=== PATIENT | female | born 1990 | race American Indian/Alaskan Native ===

== ENCOUNTER 2017-12-21 23:55 | Observation (INO) | payer OTHER ==
--- NOTE | 2017-12-22 00:59 | Emergency Department Report ---
HPI - General Chief Complaint: OB/Uterine Contractions Time Seen by Provider: 12/22/17 00:46 - HPI HPI: Room 1 The patient is a 27-year-old female presenting with a chief complaint of miscarriage/stillborn. The patient states she did not know she was . The patient states her last cycle occurred in July 2017. The patient states this evening she developed abdominal pain and low back pain and went to the bathroom push and a fetus pass. The fetus is still present connected my umbilical cord which still attached to the patient. The patient gets her back pain score of 6/10. Location: [See above] Duration: [See above] Quality: Pain Severity: Moderate Modifying factors: [see above] Context: [see above] Mode of transportation: [not driving] ED Past Medical Hx - Past Medical History Previous Medical History?: No Additional medical history: irregular menstrual cycle - Surgical History Past Surgical History?: No - Family History Family history: no significant - Social History Smoking Status: Never Smoker Substance Use Type: None ED Review of Systems ROS: Stated complaint: POST DELIVERY COMPLICATIONS Other details as noted in HPI Gastrointestinal: abdominal pain Genitourinary: abnormal menses Musculoskeletal: back pain Physical Exam - Physical Exam Vital Signs: Vital Signs 12/22/17 00:05 Temperature 97.9 F Pulse Rate 68 Respiratory 16 Rate Blood Pressure 101/50 O2 Sat by Pulse 100 Oximetry Physical Exam: GENERAL: The patient is well-developed well-nourished female lying on stretcher not appearing to be in acute distress. [] HEENT: Normocephalic. Atraumatic. Extraocular motions are intact. Patient has moist mucous membranes. NECK: Supple. Trachea midline CHEST/LUNGS: Clear to auscultation. There is no respiratory distress noted. HEART/CARDIOVASCULAR: Regular. There is no tachycardia. There is no gallop rub or murmur. ABDOMEN: Abdomen is soft, with mild discomfort to palpation in the suprapubic region. Patient has normal bowel sounds. There is no abdominal distention. SKIN: There is no rash. There is no edema. There is no diaphoresis. NEURO: The patient is awake, alert, and oriented. The patient is cooperative. The patient has normal speech MUSCULOSKELETAL: There is no evidence of acute injury. GENITOURINARY: Fetus with intact umbilical cord still attached to the patient present on the stretcher. No active vaginal bleeding seen ED Course Vital Signs 12/22/17 00:05 Temperature 97.9 F Pulse Rate 68 Respiratory 16 Rate Blood Pressure 101/50 O2 Sat by Pulse 100 Oximetry - Consultations Consultation #1: 12/22/17 00:54 RESIDENTIAL FIELD MANAGER paged 12/22/17 01:[address] Latanya Elam- request Cytotec be placed at the bedside. Requests W CC labs be sent. States will be in the ED and approximately 30 minutes ED Medical Decision Making - Lab Data Result diagrams: 12/22/17 00:46 Laboratory Tests 12/22/17 12/22/17 12/22/17 00:42 00:46 00:46 WBC 6.9 RBC 3.80 Hgb 9.7 L Hct 29.6 L MCV 78 L MCH 26 L MCHC 33 RDW 17.9 H Plt Count 184 Lymph % (Auto) 22.5 [place] % (Auto) 10.9 H Eos % (Auto) 1.3 Baso % (Auto) 0.1 Lymph # 1.5 [place] # 0.7 Eos # 0.1 Baso # 0.0 Seg Neutrophils % 65.2 Seg Neutrophils # 4.5 HCG, Quant 21364 H Blood Type B POSITIVE Antibody Screen Negative - Differential Diagnosis incomplete Critical care attestation.: If time is entered above; I have spent that time in minutes in the direct care of this critically ill patient, excluding procedure time. ED Disposition Clinical Impression: Incomplete Disposition: -09 OP ADMIT IP TO THIS HOSP Is pt being admited?: Yes Does the pt Need Aspirin: No Condition: Fair Referrals: PRIMARY CARE, [Primary Care Provider] - 3-5 Days Time of Disposition: 02:41 (admitted by Dr. Latanya Elam)
[2017-12-22 01:07] LABS: Basophils % (Auto) 0.1 % (0.0-1.8); Eosinophils # (Auto) 0.1 K/mm3 (0.0-0.4); Eosinophils % (Auto) 1.3 % (0.0-4.3); Hematocrit 29.6 % (30.3-42.9); Hemoglobin 9.7 gm/dl (10.1-14.3); Lymphocytes # (Auto) 1.5 K/mm3 (1.2-5.4); Lymphocytes % (Auto) 22.5 % (13.4-35.0); Mean Corpuscular HGB Conc 33 % (30-34); Mean Corpuscular Volume 78 fl (79-97); Monocytes # (Auto) 0.7 K/mm3 (0.0-0.8); Monocytes % (Auto) 10.9 % (0.0-7.3); Platelet Count 184 K/mm3 (140-440); Red Cell Distribution Width 17.9 % (13.2-15.2)
[2017-12-22 01:11] LABS: Mean Corpuscular Hemoglobin 26 pg (28-32)
[2017-12-22] MEDS ORDERED: CYTOTEC PR ONE (01:36)
[2017-12-22 02:42] LABS: Hepatitis C Virus Antibody Non-Reactive (NonReactive)
--- NOTE | 2017-12-22 03:04 | History and Physical Report ---
History of Present Illness Date of examination: 12/22/17 Date of admission: 12/22/17 Chief complaint: back pain and abdominal pain History of present illness: This is a 27 yo with LMP sometime in July comes into ER for pain starting at 2p and increased in intensity at 8p in which her brought her to ER. It was noted by Dr. Dickinson that baby in bed with cord still attached. Minimal bleeding and decreasing in cramping. Patient had no indication of and has not been before. She reports no medical problems. No surgeries and no allergies to medication. Past History Past Medical History: no pertinent history Past Surgical History: no surgical history Family/Genetic History: none Social history: . denies: smoking, alcohol abuse, prescription drug abuse - Obstetrical History Expected Date of Delivery: 05/04/18 Actual Gestation: 21 Week(s) 0 Day(s) : 1 Para: 0 Hx # Term Pregnancies: 0 Number of Pregnancies: 0 Spontaneous Abortions: 0 Induced : 0 Number of Living Children: 0 Review of Systems All systems: negative Genitourinary: normal appearance, no vaginal bleeding, no leakage of fluid - Vital Signs Vital signs: Vital Signs Temp Pulse Resp BP Pulse Ox 97.9 F 68 16 101/50 100 12/22/17 00:05 12/22/17 00:05 12/22/17 00:05 12/22/17 00:05 12/22/17 00:05 Temp Pulse Resp BP Pulse Ox 97.9 F 68 16 101/50 100 12/22/17 00:05 12/22/17 00:05 12/22/17 02:56 12/22/17 00:05 12/22/17 02:56 - Physical Exam Breasts: Positive: normal Cardiovascular: Regular rate, Normal S1 Lungs: Positive: Clear to auscultation, Normal air movement Abdomen: Positive: normal appearance, soft, normal bowel sounds. Negative: distention, tenderness, guarding Genitourinary (Female): Positive: normal external genitalia Vulva: both: normal Vagina: Positive: normal moisture Uterus: Positive: normal size Anus/Rectum: Positive: normal perianal skin Extremities: Positive: normal Deep Tendon Reflex Grade: Normal +2 Results Result Diagrams: 12/22/17 00:46 Abnormal lab results 05/06/18 05/06/18 Range/Units 00:46 00:46 Hgb 9.7 L (10.1-14.3) gm/dl Hct 29.6 L (30.3-42.9) % MCV 78 L (79-97) fl MCH 26 L (28-32) pg RDW 17.9 H (13.2-15.2) % [place] % (Auto) 10.9 H (0.0-7.3) % HCG, Quant 45709 H (0-4) mIU/mL All other labs normal. Assessment and Plan A/P IUP 21 weeks ( demise) s/p delivery with cord attached will start cytotec 200 ug every 4hrs until delivery will consider D and c if placenta is not delivered all labs sent ( ) type and screen
[2017-12-22] MEDS ORDERED: BRETHINE SUB-Q PRN (03:12)
[2017-12-22] MEDS ORDERED: ePHEDrine SULFATE IV PRN (03:12)
[2017-12-22] MEDS ORDERED: STADOL IV PRN (03:12)
[2017-12-22] MEDS ORDERED: XYLOCAINE 2% INFILTRATI ONE (03:12)
[2017-12-22] MEDS ORDERED: ZOFRAN IV PRN (03:12)
[2017-12-22] MEDS ORDERED: PHENERGAN PO PRN (03:12)
[2017-12-22] MEDS ORDERED: BRETHINE IVP PRN (03:12)
[2017-12-22] MEDS ORDERED: MINERAL OIL PO PRN (03:12)
[2017-12-22] MEDS ORDERED: SUBLIMAZE IV PRN (03:12)
[2017-12-22 03:15] LABS: Rubella IgG Antibody Immune (Immune)
[2017-12-22] MEDS ORDERED: PITOCin/NS 20 UNIT/1000ML DRIP 20 UNITS/1,000 ML BAG IV SCH (04:00)
[2017-12-22] MEDS ORDERED: PITOCin/NS 30 UNIT/500ML 30 UNITS/500 ML BAG IV SCH (04:00)
[2017-12-22] MEDS: LACTATED RINGERS 1,000 ML IV SCH ×3 (05:26→22:15)
--- NOTE | 2017-12-22 05:36 | Event Note ---
Date: 12/22/17 Patient transferred to L and D and was examined and noted to have fetus delivered with cord attached. clamp applied and cut and pelvic exm revealed a cervix 1cm no bleeding. Cytotec applied in posterior fornix. Will continue to watch closely for delivery of retained placenta.
[2017-12-22] MEDS ORDERED: CYTOTEC VG SCH (09:00)
[2017-12-22] MEDS: CYTOTEC VG SCH ×2 (13:45→19:06)
--- NOTE | 2017-12-22 13:48 | Event Note ---
Date: 12/22/17 Patient has some contractions. SVE 1-2 cm cord still present. I placed 400 ug in posterior fornix. will continue present mgt. patient stable
--- NOTE | 2017-12-22 19:14 | Ultrasound Report ---
FINAL REPORT PROCEDURE: US OB LIMITED TECHNIQUE: Real-time limited sonographic examination was performed for evaluation of size, position, heartbeat, fluid volume for each fetus with image documentation (1 or more fetuses). CPT 48506 HISTORY: Early delivery. Evaluate retained products of conception COMPARISON: No prior studies are available for comparison. FINDINGS: There is no evidence of a living intrauterine gestation. There is a 3.4 x 11.0 centimeter mildly echogenic structure seen in the endometrial canal consistent with retained products of conception. A small amount of fluid is also visualized. pole and heartbeat are not visualized. Uterus is otherwise unremarkable. Neither ovary was visualized. IMPRESSION: Retained products of conception as described. pole and heartbeat are not visualized.
[2017-12-22] MEDS ORDERED: NACL 0.9% 500 ML 500 ML IV SCH (20:21)
[2017-12-23] MEDS ORDERED: POLYCILLIN/NS 2 GM/100 ML 2 GM/100 ML BAG IV ONE (01:26)
[2017-12-23] MEDS: POLYCILLIN/NS 2 GM/100 ML 2 GM/100 ML BAG IV SCH ×2 (01:41→07:07)
[2017-12-23] MEDS: CYTOTEC VG SCH (02:22)
--- NOTE | 2017-12-23 02:35 | Event Note ---
Date: 12/23/17 Patient had some bleeding and clots earlier. No active bleeding now. sve2/50/-3 cytotec 400 ug po given ( last dose) discussed r/b/a of D and C which include bleeding infection, damage to pelvic and non pelvic organs , risk of hysterectomy and . consents signed. plan for scheduled procedure in am.
--- NOTE | 2017-12-23 07:39 | Progress Note ---
Assessment and Plan A/P IUP 21 weeks ( demise) s/p delivery with cord attached s/p retained placenta delivery ( s/p cytotec 5 doses) will check hemoglobin vss discharge home today Subjective - Subjective Date of service: 12/23/17 Principal diagnosis: s/p and delivery of retained placenta Interval history: This is a 27 yo with LMP sometime in July comes into ER for pain starting at 2p and increased in intensity at 8p in which her brought her to ER. It was noted by Dr. Dickinson that baby in bed with cord still attached. Minimal bleeding and decreasing in cramping. Patient had no indication of and has not been before. She reports no medical problems. No surgeries and no allergies to medication. Patient reports: appetite normal, voiding normally, pain well controlled, flatus , ambulating normally [place]: Objective - Vital Signs Latest vital signs: Vital Signs Temp Pulse Resp BP BP Pulse Ox 12/23/17 07:37 59 L 99 12/23/17 07:33 55 L 101/59 12/23/17 07:32 58 L 97 12/23/17 07:06 71 98 12/23/17 07:01 70 98 12/23/17 06:56 66 99 12/23/17 06:51 70 98 12/23/17 06:46 71 100 12/23/17 06:41 72 97 12/23/17 06:36 68 100 12/23/17 06:31 69 98 12/23/17 06:28 81 93 12/23/17 06:26 63 99 12/23/17 06:02 71 96 12/23/17 05:57 71 98 12/23/17 05:52 71 98 12/23/17 05:47 70 98 12/23/17 05:42 68 99 12/23/17 05:37 64 98 12/23/17 05:32 67 98 12/23/17 05:27 71 98 12/23/17 05:22 68 99 12/23/17 05:17 68 98 12/23/17 05:12 70 98 12/23/17 05:08 71 107/52 12/23/17 05:07 67 98 12/23/17 05:05 98.6 F 69 18 107/52 12/23/17 00:59 69 100/59 05/07/18 00:58 69 86/50 05/07/18 00:55 68 86/48 05/06/18 23:55 67 99/57 05/06/18 22:55 79 95/50 05/06/18 22:21 80 98 05/06/18 22:16 73 98 05/06/18 22:11 73 99 05/06/18 22:10 94 H 91 [id number] 22:06 79 99 05/06/18 22:01 73 93 05/0618 21:56 69 99 05/06/18 21:55 72 106/57 05/06/18 21:51 76 100 05/06/18 21:46 75 99 05/06/18 21:41 76 100 05/0618 21:36 81 99 05/06/18 21:31 80 98 05/06/18 21:26 81 98 05/06/18 21:21 77 98 05/06/18 21:16 81 98 05/0618 21:11 77 99 05/0618 21:06 75 98 05/0618 21:01 74 99 05/06/18 20:56 75 99 05/06/18 20:55 73 106/53 78 L 05/06/18 20:51 78 99 05/06/18 20:46 81 100 05/06/18 20:41 74 99 05/06/18 20:36 69 99 05/06/18 20:31 78 99 05/06/18 20:26 68 99 05/06/18 20:21 81 98 05/06/18 20:16 69 100 05/0618 20:11 72 100 05/0618 20:06 68 100 05/06/18 20:05 86 70 L 05/0618 20:01 80 99 05/06/18 19:56 59 L 97 05/06/18 19:54 99.1 F 05/0618 19:51 81 99 05/06/18 19:46 75 98 05/06/18 19:41 89 99 05/06/18 19:36 90 99 05/06/18 19:31 83 99 05/06/18 19:26 86 99 05/06/18 19:21 76 100 05/0618 19:19 76 107/50 05/06/18 19:16 77 99 05/06/18 19:11 60 100 0518 19:06 60 100 0518 19:01 60 100 0518 18:56 61 99 0518 18:55 60 87/48 05 18:51 60 99 18 18:46 57 L 99 12/22/17 18:41 54 L 100 12/22/17 18:36 54 L 100 12/22/17 18:34 35 L 84 12/22/17 18:31 62 99 18 18:26 72 97 12/22/17 18:21 58 L 100 12/22/17 18:16 61 99 12/22/17 18:11 57 L 99 12/22/17 18:06 58 L 100 12/22/17 18:01 58 L 99 12/22/17 17:56 57 L 100 12/22/17 17:55 64 104/70 12/22/17 17:51 64 100 12/22/17 17:46 57 L 100 12/22/17 17:41 53 L 100 12/22/17 17:36 57 L 100 12/22/17 17:31 53 L 100 12/22/17 17:26 55 L 100 12/22/17 17:21 53 L 100 12/22/17 17:16 57 L 100 12/22/17 17:11 59 L 100 12/22/17 17:06 59 L 100 12/22/17 17:01 65 100 12/22/17 16:56 72 L 12/22/17 16:55 62 94 12/22/17 16:51 61 100 18 16:46 60 100 18 16:41 61 100 18 16:36 63 100 18 16:31 59 L 100 18 16:26 54 L 100 18 16:24 56 L 106/50 0518 16:23 67 131/49 0518 16:21 68 100 0518 16:16 97.9 F 66 16 106/50 100 0518 15:55 52 L 102/57 05 15:54 55 L 100 05 15:49 55 L 100 12/22/17 15:44 61 99 0518 15:40 81 94 0518 15:39 61 99 0518 15:34 63 99 0518 15:29 60 100 0518 15:24 59 L 99 0518 15:19 59 L 99 0518 15:14 73 96 05 15:09 63 99 05 15:04 56 L 100 05 14:59 58 L 99 12/22/17 14:54 59 L 99 12/22/17 14:49 57 L 99 12/22/17 14:44 59 L 99 12/22/17 14:39 55 L 99 12/22/17 14:34 56 L 97 12/22/17 14:29 54 L 99 12/22/17 14:24 55 L 100 12/22/17 14:19 58 L 99 12/22/17 14:14 53 L 99 12/22/17 14:09 59 L 99 12/22/17 14:04 63 99 12/22/17 14:03 54 L 89 12/22/17 13:59 57 L 100 12/22/17 13:55 63 105/55 0518 13:54 61 99 0518 13:49 64 81 L 0518 13:47 61 72 L 0518 13:44 62 100 0518 13:39 66 67 L 0518 13:38 70 95 0518 13:33 62 100 18 13:32 64 92 0518 13:28 66 98 0518 13:24 59 L 92 0518 13:23 67 99 05/18 13:18 68 100 0518 13:13 62 100 0518 13:08 60 100 0518 13:03 62 99 0518 12:58 62 97 050618 12:55 63 106/59 05/0618 12:53 61 99 0518 12:48 65 99 0518 12:43 64 105/70 100 0518 12:37 98 F 63 16 105/70 99 0518 08:55 61 86/49 0518 07:55 97.9 F 68 16 101/57 101/57 Intake and Output 12/22/17 12/22/17 12/23/17 15:59 23:59 07:59 Intake Total 1000 1000 100 Balance 1000 1000 100 Intake: IV 1000 1000 100 Lactated Ringers 1,000 ml 1000 1000 @ 125 mls/hr IV DIRECT DUNIA Rx#:[id number] POLYCILLIN/NS 2 GM/100 ML 100 2 gm In 100 ml @ 100 mls /hr IV Q4HR DUNIA Rx#: [id number] - Exam Breasts: Present: normal Cardiovascular: Present: Regular rate, Normal S1 Lungs: Present: Clear to auscultation, Normal air movement Abdomen: Present: normal appearance, soft, normal bowel sounds. Absent: distention, tenderness, guarding Vulva: both: normal Uterus: Present: normal, firm. Absent: bogginess, tenderness Extremities: Present: normal Deep Tendon Reflex Grade: Normal +2 - Labs Labs: Abnormal lab results 12/22/17 Range/Units 00:42 Crossmatch See Detail
[2017-12-23] MEDS ORDERED: LACTATED RINGERS 1,000 ML IV ONE (09:20)
--- NOTE | 2017-12-23 09:40 | Ultrasound Report ---
ULTRASOUND PELVIC COMPLETE HISTORY: Spontaneous vaginal delivery at 21 weeks, check for retained products of conception. TECHNIQUE: Transabdominal and transvaginal ultrasound with color doppler interrogation. FINDINGS: The uterus measures 12 x 7 x 9 cm. No uterine fibroid disease is identified. The endometrial stripe measures up to 26 mm in thickness in the lower uterine segment. No endometrial fluid collection. The ovaries are normal size, contour and echotexture. No adnexal cyst or mass. IMPRESSION: Thickened endometrium as described concerning for retained products of conception.
[2017-12-23 10:00] LABS: Basophils % (Auto) 0.2 % (0.0-1.8); Eosinophils # (Auto) 0.1 K/mm3 (0.0-0.4); Eosinophils % (Auto) 0.8 % (0.0-4.3); Hemoglobin 9.2 gm/dl (10.1-14.3); Lymphocytes # (Auto) 0.9 K/mm3 (1.2-5.4); Lymphocytes % (Auto) 13.8 % (13.4-35.0); Mean Corpuscular HGB Conc 34 % (30-34); Mean Corpuscular Hemoglobin 26 pg (28-32); Mean Corpuscular Volume 77 fl (79-97); Monocytes # (Auto) 0.5 K/mm3 (0.0-0.8); Monocytes % (Auto) 7.3 % (0.0-7.3); Platelet Count 160 K/mm3 (140-440); Red Blood Count 3.49 M/mm3 (3.65-5.03); Red Cell Distribution Width 17.8 % (13.2-15.2)
[2017-12-23 12:03] VITALS: BP 104/49
== END 2017-12-23 13:15 | disposition home or self-care (01) ==
LOC: ED 23:55 → OB 12-22 03:53 → INTOOBSV 12-22 03:53 → LD 12-22 04:11
PROVIDERS: ADMIT Obstetrics & Gynecology; ATTEND Obstetrics & Gynecology
DX: O26.892 Other specified pregnancy related conditions, second trimester (principal); R10.9 Unspecified abdominal pain; O99.89 Other specified diseases and conditions complicating pregnancy, childbirth and the puerperium; M54.9 Dorsalgia, unspecified; Z3A.21 21 weeks gestation of pregnancy
CPT/HCPCS: 36415; 76815; 76856; 84702; 85025; 85660; 86592; 86706; 86762; 86803; 86850; 86900; 86901; 87806; 88305; 96361; 96365; 96366; 96367; 96375; 99285; G0378; J0290; J0595; J2405; J2590; J3105; J7120; 86920

== ENCOUNTER 2020-10-10 10:00 | Emergency (ER) | payer BC ==
[2020-10-10] MEDS ORDERED: ACETAMINOPHEN 500 MG TAB PO ONE (10:40)
--- NOTE | 2020-10-10 10:49 | Event Note ---
ED Screening Note Date of service: 10/10/20 Time: 10:48 ED Screening Note: 30-year-old female with no significant past medical history presents to the ER today complaint of syncope and head injury. Patient states that this morning while she was standing next to the lead carpenter she started to "dizzy, and then she passed out. She states that she is not sure exactly how long she passed out but she know it was brief. She states that she did hit her head on the door. She denies any associated nausea, vomiting, chest pain, shortness of breath abdominal pain or any other associated symptoms. This initial assessment/diagnostic orders/clinical plan/treatment(s) is/are subject to change based on patients health status, clinical progression and re- assessment by fellow clinical providers in the ED. Further treatment and workup at subsequent clinical providers discretion. Patient/guardian urged not to elope from the ED as their condition may be serious if not clinically assessed and managed. Initial orders include: Head CT, CBC, CMP, EKG, hCG and urinalysis
[2020-10-10 11:44] LABS: Basophils % (Auto) 0.6 % (0.0-1.8); Eosinophils # (Auto) 0.1 K/mm3 (0.0-0.4); Eosinophils % (Auto) 2.7 % (0.0-4.3); Hematocrit 33.4 % (30.3-42.9); Hemoglobin 10.9 gm/dl (10.1-14.3); Lymphocytes # (Auto) 1.5 K/mm3 (1.2-5.4); Lymphocytes % (Auto) 47.4 % (13.4-35.0); Mean Corpuscular HGB Conc 33 % (30-34); Mean Corpuscular Volume 75 fl (79-97); Monocytes # (Auto) 0.4 K/mm3 (0.0-0.8); Monocytes % (Auto) 13.3 % (0.0-7.3); Platelet Count 169 K/mm3 (140-440); Red Blood Count 4.47 M/mm3 (3.65-5.03)
--- NOTE | 2020-10-10 11:55 | Cat Scan Report ---
NONENHANCED CT SCAN OF THE HEAD: INDICATION / CLINICAL INFORMATION: 30 years Female; Head injury/syncope. TECHNIQUE: Routine CT head without contrast. All CT scans at this location are performed using CT dos e reduction for [place] by means of automated exposure control. COMPARISON: None. FINDINGS: BRAIN / INTRACRANIAL CONTENTS: No intracranial sequela from the trauma; no scalp hematoma; no air-flu id level in the visualized portions of the paranasal sinuses No acute hemorrhage, mass effect, midline shift, hydrocephalus, or acute, large territorial infarct. No chronic infarct or focal atrophy. Normal brain volume and ventricular/sulcal size for age. No sig nificant white matter abnormality. CRANIOCERVICAL JUNCTION: No significant abnormality. ORBITS: No significant abnormality of visualized orbits. SINUSES / MASTOIDS: No significant abnormality of the visualized paranasal sinuses or mastoid air morgan ls. ADDITIONAL FINDINGS: None. IMPRESSION: No intracranial sequela from the trauma; No focal parenchymal lesion Signer Name: Jossy Recinos MD Signed: 10/10/2020 11:50 AM Workstation Name: [employer]
--- NOTE | 2020-10-10 12:04 | Emergency Department Report ---
ED General Adult HPI - General Chief complaint: Syncope Stated complaint: FALL/HEAD INJURY Time Seen by Provider: 10/10/20 10:25 Source: patient Mode of arrival: Ambulatory Limitations: No Limitations - History of Present Illness Initial comments: The patient presents to the emergency department with a chief complaint of passing out. Patient states she woke up around 8:30 AM this morning felt more fatigued than she normally does. Patient states she went to her line to area to get a uniform for work and was feeling severely dizzy. Patient states she bent over to get her clothes and next thing she remembers is being awakened by her sister. Patient denies any chest pain prior to or after the syncopal episode. She denies abdominal pain or shortness of breath. Patient states that she is severely fatigued and has not been sleeping well due to her work schedule. Patient states that at times she works 6 12-hour shifts in a row. Patient descr ibes the dizziness as the room mildly spinning which has improved since coming to the ED -: Sudden Severity scale (0 -10): 0 Consistency: now resolved Improves with: none Worsens with: none Associated Symptoms: denies other symptoms Treatments Prior to Arrival: none - Related Data Previous Rx's Medication Instructions Recorded Last Taken Type Ferrous Sulfate 325 mg PO BID #60 tablet. 12/23/17 Unknown Rx Allergies Allergy/AdvReac Type Severity Reaction Status Date / Time No Known Allergies Allergy Unverified 12/22/17 03:45 ED Review of Systems ROS: Stated complaint: FALL/HEAD INJURY Other details as noted in HPI Comment: All other systems reviewed and negative Constitutional: other (Fatigue). denies: chills, fever Eyes: denies: eye pain, eye discharge, vision change ENT: denies: ear pain, throat pain Respiratory: denies: cough, shortness of breath, wheezing Cardiovascular: denies: chest pain, palpitations Endocrine: no symptoms reported Gastrointestinal: denies: abdominal pain, nausea, diarrhea Genitourinary: denies: urgency, dysuria, discharge Musculoskeletal: denies: back pain, joint swelling, arthralgia Skin: denies: rash, lesions Neurological: denies: headache, weakness, paresthesias Psychiatric: denies: anxiety, depression Hematological/Lymphatic: denies: easy bleeding, easy bruising ED Past Medical Hx - Past Medical History Previous Medical History?: No Hx Hypertension: No Hx Congestive Heart Failure: No Hx Diabetes: No Hx Deep Vein Thrombosis: No Hx Renal Disease: No Hx Sickle Cell Disease: No Hx Seizures: No Hx Asthma: No Hx COPD: No Hx HIV: No Additional medical history: irregular menstrual cycle - Social History Smoking Status: Never Smoker Substance Use Type: None - Medications Home Medications: Home Medications Medication Instructions Recorded Confirmed Last Taken Type Ferrous Sulfate 325 mg PO BID #60 tablet. 12/23/17 Unknown Rx ED Physical Exam - General Limitations: No Limitations General appearance: alert, in no apparent distress - Head Head exam: Present: atraumatic, normocephalic - Eye Eye exam: Present: normal appearance, PERRL, EOMI - ENT ENT exam: Present: mucous membranes moist - Neck Neck exam: Present: normal inspection - Respiratory Respiratory exam: Present: normal lung sounds bilaterally. Absent: respiratory distress - Cardiovascular Cardiovascular Exam: Present: regular rate, normal rhythm. Absent: systolic murmur, diastolic murmur, rubs, gallop - GI/Abdominal GI/Abdominal exam: Present: soft, normal bowel sounds. Absent: distended, tenderness - Extremities Exam Extremities exam: Present: normal inspection - Back Exam Back exam: Present: normal inspection - Neurological Exam Neurological exam: Present: alert, oriented X3, CN II-XII intact. Absent: motor sensory deficit - Psychiatric Psychiatric exam: Present: normal affect, normal mood - Skin Skin exam: Present: warm, dry, intact, normal color. Absent: rash ED Course Vital Signs 10/10/20 10/10/20 10/10/20 10:16 10:58 11:15 Temperature 98.0 F Pulse Rate 68 Pulse Rate [ Lying] Pulse Rate [ Sitting] Pulse Rate [ Standing] Respiratory 18 18 16 Rate Blood Pressure 118/85 Blood Pressure [Lying] Blood Pressure [Right] Blood Pressure [Sitting] Blood Pressure [Standing] O2 Sat by Pulse 100 100 Oximetry 10/10/20 10/10/20 10/10/20 11:17 12:20 12:32 Temperature Pulse Rate 62 83 Pulse Rate [ 67 Lying] Pulse Rate [ 71 Sitting] Pulse Rate [ 75 Standing] Respiratory 16 Rate Blood Pressure Blood Pressure 108/65 [Lying] Blood Pressure 120/69 [Right] Blood Pressure 123/81 [Sitting] Blood Pressure 114/71 [Standing] O2 Sat by Pulse 98 Oximetry 10/10/20 13:17 Temperature Pulse Rate 64 Pulse Rate [ Lying] Pulse Rate [ Sitting] Pulse Rate [ Standing] Respiratory 18 Rate Blood Pressure Blood Pressure [Lying] Blood Pressure 115/89 [Right] Blood Pressure [Sitting] Blood Pressure [Standing] O2 Sat by Pulse 98 Oximetry ED Medical Decision Making - Lab Data Result diagrams: 10/10/20 11:23 10/10/20 11:23 Lab Results 10/10/20 10/10/20 10/10/20 Range/Units 11:23 11:23 11:23 WBC 3.2 L (4.5-11.0) K/mm3 RBC 4.47 (3.65-5.03) M/mm3 Hgb 10.9 (10.1-14.3) gm/dl Hct 33.4 (30.3-42.9) % MCV 75 L (79-97) fl MCH 24 L (28-32) pg MCHC 33 (30-34) % RDW 19.0 H (13.2-15.2) % Plt Count 169 (140-440) K/mm3 Lymph % (Auto) 47.4 H (13.4-35.0) % [place] % (Auto) 13.3 H (0.0-7.3) % Eos % (Auto) 2.7 (0.0-4.3) % Baso % (Auto) 0.6 (0.0-1.8) % Lymph # (Auto) 1.5 (1.2-5.4) K/mm3 [place] # (Auto) 0.4 (0.0-0.8) K/mm3 Eos # (Auto) 0.1 (0.0-0.4) K/mm3 Baso # (Auto) 0.0 (0.0-0.1) K/mm3 Seg Neutrophils % 36.0 L (40.0-70.0) % Seg Neutrophils # 1.1 L (1.8-7.7) K/mm3 D-Dimer (0-234) ng/mlDDU Sodium 135 L (137-145) mmol/L Potassium 4.3 (3.6-5.0) mmol/L Chloride 102.2 (98-107) mmol/L Carbon Dioxide 26 (22-30) mmol/L Anion Gap 11 mmol/L BUN 17 (7-17) mg/dL Creatinine 0.9 (0.6-1.2) mg/dL Estimated GFR > 60 ml/min BUN/Creatinine Ratio 19 % Glucose 94 (65-100) mg/dL Calcium 8.9 (8.4-10.2) mg/dL Total Bilirubin < 0.20 (0.1-1.2) mg/dL AST 16 (5-40) units/L ALT 16 (7-56) units/L Alkaline Phosphatase 60 (35-129) units/L Troponin T < 0.010 (0.00-0.029) ng/mL Total Protein 7.3 (6.3-8.2) g/dL Albumin 4.1 (3.9-5) g/dL Albumin/Globulin Ratio 1.3 % HCG, Qual Negative (Negative) 10/10/20 Range/Units 12:48 WBC (4.5-11.0) K/mm3 RBC (3.65-5.03) M/mm3 Hgb (10.1-14.3) gm/dl Hct (30.3-42.9) % MCV (79-97) fl MCH (28-32) pg MCHC (30-34) % RDW (13.2-15.2) % Plt Count (140-440) K/mm3 Lymph % (Auto) (13.4-35.0) % [place] % (Auto) (0.0-7.3) % Eos % (Auto) (0.0-4.3) % Baso % (Auto) (0.0-1.8) % Lymph # (Auto) (1.2-5.4) K/mm3 [place] # (Auto) (0.0-0.8) K/mm3 Eos # (Auto) (0.0-0.4) K/mm3 Baso # (Auto) (0.0-0.1) K/mm3 Seg Neutrophils % (40.0-70.0) % Seg Neutrophils # (1.8-7.7) K/mm3 D-Dimer 188.98 (0-234) ng/mlDDU Sodium (137-145) mmol/L Potassium (3.6-5.0) mmol/L Chloride (98-107) mmol/L Carbon Dioxide (22-30) mmol/L Anion Gap mmol/L BUN (7-17) mg/dL Creatinine (0.6-1.2) mg/dL Estimated GFR ml/min BUN/Creatinine Ratio % Glucose (65-100) mg/dL Calcium (8.4-10.2) mg/dL Total Bilirubin (0.1-1.2) mg/dL AST (5-40) units/L ALT (7-56) units/L Alkaline Phosphatase (35-129) units/L Troponin T (0.00-0.029) ng/mL Total Protein (6.3-8.2) g/dL Albumin (3.9-5) g/dL Albumin/Globulin Ratio % HCG, Qual (Negative) - EKG Data -: EKG Interpreted by Me EKG shows normal: sinus rhythm Rate: normal - Radiology Data Radiology results: report reviewed - Medical Decision Making Discussed results with patient Critical care attestation.: If time is entered above; I have spent that time in minutes in the direct care of this critically ill patient, excluding procedure time. ED Disposition Clinical Impression: Vaso vagal episode, Dizziness, Fatigue Disposition: TO HOME OR SELFCARE Is pt being admited?: No Does the pt Need Aspirin: No Condition: Stable Instructions: Syncope (ED), Fatigue, Dizziness, Near-Syncope, Syncope Additional Instructions: return if worse Referrals: PRIMARY CAREMD [Primary Care Provider] - 3-5 Days [facility] [Provider Group] - 3-5 Days [facility] [Provider Group] - 3-5 Days RICKY PARSONS MD [Staff Physician] - 3-5 Days Forms: Work/School Release Form(ED) Time of Disposition: 14:13
[2020-10-10 12:11] LABS: Alanine Aminotransferase 16 units/L (7-56); Albumin 4.1 g/dL (3.9-5); BUN/Creatinine Ratio 19; Blood Urea Nitrogen 17 mg/dL (7-17); Calcium 8.9 mg/dL (8.4-10.2); Hemolysis Index 0
[2020-10-10] MEDS ORDERED: MECLIZINE 25 MG TAB PO ONE (12:57)
[2020-10-10 14:46] VITALS: BP 117/77
== END 2020-10-10 14:46 | disposition home or self-care (01) ==
LOC: ED 10:00
DX: R55 Syncope and collapse (principal); R42 Dizziness and giddiness; R53.83 Other fatigue; Z79.899 Other long term (current) drug therapy
CPT/HCPCS: 36415; 70450; 80053; 84484; 84703; 85025; 85379; 93005